=== PATIENT | female | born 1990 | race African-American/Black ===

== ENCOUNTER 2020-07-08 20:40 | Emergency (ER) | payer MEDICAID ==
[~2020-07-08] VITALS: Ht 170.2 cm; Wt 127.0 kg
[2020-07-08 21:00] VITALS: BP 133/86
--- NOTE | 2020-07-08 21:00 | NUR ---
ED Nurse Note: Patient walked into ED for c/o abscess on R vaginal labia. Patient reports severe pain and discomfort in vaginal area. Patient denies any other symptoms. No fever, cough, SOB. Patient is aaox4, breathing is normal and unlabored.
--- NOTE | 2020-07-08 22:00 | NUR ---
ED Nurse Note: Patient is requesting pain medication to be able to tolerate procedure. DEVOND notified and spoke with pt.
[2020-07-08] MEDS ORDERED: Morphine Sulfate 2mg/ml Inj(IV/IM USE ONLY) IM ONE (22:15)
[2020-07-08] MEDS ORDERED: Lidocaine 1% 10mg/ml/EPI 0.01mg/ml 30ml INJ ONE (22:15)
[2020-07-08] MEDS ORDERED: LORazepam Inj 2mg/ml 1ml IM ONE (22:15)
--- NOTE | 2020-07-08 22:26 | Emergency Room Report ---
History of Present Illness General Chief Complaint: Skin Rash/Abscess Source: Patient Present Illness HPI 29-year-old female here with right-sided vaginal pain. Patient says that she has had 1 week of extreme soreness and pain and swelling that she feels on the right side of her vagina. She says it is painful to sit. She noticed it several days ago and that there was a small amount of white drainage from the area but that stopped but the swelling has increased. Has not taken anything for pain. No fevers or chills, no dysuria, no vaginal discharge or vaginal bleeding. Allergies: Coded Allergies: No Known Allergies (Unverified , 07/08/20) COVID-19 Screening Contact w/high risk pt: No Experienced COVID-19 symptoms?: No COVID-19 Testing performed ENGLISH TUTOR: No Patient History Last Menstrual Period: 09/2019 Now: No Nursing Documentation-[facility] Past Medical History: No Stated History Review of Systems All Other Systems: negative except mentioned in HPI Physical Exam Vital Signs Date Time Temp Pulse Resp B/P (MAP) Pulse Ox O2 Delivery O2 Flow Rate FiO2 07/08/20 20:44 97.5 100 16 133/86 (102) 98 Room Air Sp02 EP Interpretation: reviewed, normal General Appearance: no apparent distress, alert, GCS 15, non-toxic Head: normocephalic, atraumatic Eyes: bilateral eye normal inspection, bilateral eye PERRL ENT: hearing grossly normal, normal pharynx, no angioedema, normal voice Neck: full range of motion, supple/symm/no masses Respiratory: chest non-tender, lungs clear, normal breath sounds, speaking full sentences Cardiovascular #1: regular rate, rhythm, no edema Cardiovascular #2: 2+ carotid (R), 2+ carotid (L), 2+ radial (R), 2+ radial (L) , 2+ dorsalis pedis (R), 2+ dorsalis pedis (L) Gastrointestinal: normal bowel sounds, non tender, soft, non-distended, no guarding, no rebound Rectal: deferred Genitourinary: no CVA tenderness, other - Focal area of swelling and erythema of the right labia. Extremely tender on palpation. No surrounding skin erythema Musculoskeletal: back normal, normal range of motion, calf tenderness, gait/ station normal, non-tender Neurologic: alert, motor strength/tone normal, oriented x3, sensory intact, responsive, speech normal Psychiatric: judgement/insight normal, memory normal, mood/affect normal, no suicidal/homicidal ideation Lymphatic: no adenopathy Procedures Incision and Drainage Incision and Drainage : Consent: Verbal Blade Size: 11 I & D Procedure: betadine prep Wound Location: other - Right Bartholin's gland Wound's Depth, Shape: superficial Anesthesia: Lidocaine w/ Epi Patient Tolerated: Well Complications: None Progress Large amount of purulent fluid drained Medical Decision Making Diagnostic Impression: Primary Impression: Bartholin's gland abscess ER Course 29-year-old female here with her right-sided vaginal pain. Patient had a approximately 2 cm Bartholin's abscess which was incised and drained as described above. Patient tolerated the procedure well. A large amount of purulent fluid was drained. I discussed placement of a Word catheter and patient wished to not have this placed. She was given a prescription for doxycycline and told to follow-up with her primary care physician or come back to the emergency department if she has any worsening pain, drainage, erythema, fevers, chills. She expressed understanding was discharged. Ddx: lymphadenopathy/lymphangitis, sebaceous/ganglion cyst, abscess, cellulitis , tumor, insect bite, substance abuse, folliculitis Last Vital Signs Date Time Temp Pulse Resp B/P (MAP) Pulse Ox O2 Delivery O2 Flow Rate FiO2 07/08/20 20:44 97.5 100 16 133/86 (102) 98 Room Air Scripts Doxycycline Monohydrate* (DOXYCYCLINE MONOHYDRATE*) 100 Mg Capsule 100 MG ORAL Q12H, #14 CAP 0 Refills Prov: Basilio Diaz M.D. 07/08/20 Basilio Diaz M.D. Jul 08, 2020 22:26
--- NOTE | 2020-07-08 23:00 | NUR ---
ED Nurse Note: ERMD bedside for I&D procedure. Female RN witness present for procedure. Pt tolerated well.
--- NOTE | 2020-07-08 23:30 | NUR ---
ED Nurse Note: Patient reports relief of most pain and discomfort associated with abscess s/p I&D.
[2020-07-08] MEDS ORDERED: DOXYCYCLINE MO100 MG ORAL (23:55)
[2020-07-09] VITALS: BP 121/99
--- NOTE | 2020-07-09 | NUR ---
ER DISCHARGE NOTE: Patient is cleared to be discharged per ERMD, pt is aox4, on room air, with stable vital signs. pt was given dc and prescription instructions, pt was able to verbalize understanding, pt id band removed. pt is able to ambulate with steady gait. pt took all belongings.
== END 2020-07-09 | disposition home or self-care (01) ==
LOC: EMR 21:00
DX: N75.1 Abscess of Bartholin's gland (principal)
CPT/HCPCS: 10060; 96372; J2270; Z7502; 99283

== ENCOUNTER 2020-08-15 09:40 | Emergency (ER) | payer MEDICAID ==
[~2020-08-15] VITALS: Ht 170.2 cm; Wt 125.2 kg
[~2020-08-15 09:40] MED LIST: DOXYCYCLINE MO100 MG ORAL
[2020-08-15 09:52] VITALS: BP 103/75
--- NOTE | 2020-08-15 10:10 | Emergency Room Report ---
History of Present Illness General Chief Complaint: Lower Extremity Injury Source: Patient Present Illness HPI Is a 29-year-old female presents after increased left-sided ankle pain. Patient awoke from sleep with pain. Denies any fever. States she recently finished her menses. Denies any other locations of discomfort. Patient took ibuprofen without any improvement. Denies any definite recent trauma. 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 Patient History Past Medical History: see triage record Last Menstrual Period: currently on her period Reviewed Nursing Documentation: PMH: Agreed; PSxH: Agreed Nursing Documentation-PMH Past Medical History: No Stated History Review of Systems All Other Systems: negative except mentioned in HPI Physical Exam Vital Signs Date Time Temp Pulse Resp B/P (MAP) Pulse Ox O2 Delivery O2 Flow Rate FiO2 08/15/20 09:52 97.3 92 15 103/75 (84) 96 Room Air General Appearance: well appearing, no apparent distress, alert, GCS 15 Head: normocephalic, atraumatic ENT: hearing grossly normal, normal voice Neck: full range of motion, supple Respiratory: chest non-tender, lungs clear, no respiratory distress, speaking full sentences Gastrointestinal: normal inspection Musculoskeletal: other - Left-sided ankle tenderness to the anterior for talofibular area, minimal soft tissue swelling, no erythema Neurologic: alert, motor strength/tone normal, tool supervisor III-XII nml as tested, oriented x3, normal gait Psychiatric: mood/affect normal Skin: no rash Medical Decision Making Diagnostic Impression: Primary Impression: Ankle pain ER Course Patient presented for ankle pain. Differential diagnosis include was not limited to ankle sprain, contusion, fracture among others. Because of compl exity of patient's case imaging studies were ordered. Extremity with ankle 3 views interpreted by me showed normal bony alignment without an fracture. Patient was placed in [place] wrap. She was given crutches. She was advised to take nonsteroidal anti-inflammatory medications to keep her leg elevated. Patient was advised to return if she shows some erythema or other signs of inf ection. The patient is advised to follow up with primary care doctor in 2-3 days. Patient is advised to return if any worsening condition or if any changes in status that are concerning. This report is dictated with Dragon plate painter apprentice software which may occasionally lead to discrepancies related to use of this software. Last Vital Signs Date Time Temp Pulse Resp B/P (MAP) Pulse Ox O2 Delivery O2 Flow Rate FiO2 08/15/20 09:52 97.3 92 15 103/75 (84) 96 Room Air Status: improved Disposition: HOME, SELF-CARE Condition: Stable Scripts Ibuprofen* (MOTRIN*) 600 Mg Tablet 600 MG ORAL Q8H PRN for FOR PAIN, #30 TAB 0 Refills Prov: Deejay Finney MD 08/15/20 Deejay Finney MD Aug 15, 2020 10:10
[2020-08-15] MEDS ORDERED: IBUPROFEN600 M1 ORAL (10:39)
--- NOTE | 2020-08-15 16:11 | Diagnostic Imaging Report ---
Indication: Left ankle pain Technique: 3 views of the left ankle Comparison: none Findings: No acute fractures. No dislocations. The joint spaces are preserved. Impression: Negative
== END 2020-08-15 10:52 | disposition home or self-care (01) ==
LOC: EMR 10:05
DX: M25.572 Pain in left ankle and joints of left foot (principal)
CPT/HCPCS: 73610; Z7502; 99283

== ENCOUNTER 2020-08-17 18:28 | Emergency (ER) | payer MEDICAID ==
[~2020-08-17] VITALS: Ht 170.2 cm; Wt 126.1 kg
[~2020-08-17 18:28] MED LIST changes: +IBUPROFEN600 M1 ORAL
[2020-08-17] MEDS ORDERED: Ketorolac 30mg Inj IM ONE (19:00)
[2020-08-17] MEDS ORDERED: Methocarbamol 750mg tab ORAL ONE (19:00)
[2020-08-17 19:10] VITALS: BP 109/71
--- NOTE | 2020-08-17 19:16 | NUR ---
ED Nurse Note:pt. walked in c/o left foot pain for 2 days, given pain meds
--- NOTE | 2020-08-17 19:50 | NUR ---
ED Nurse Note: Recieved report from TILA Lewis to resume care, pt is sitting in chair waiting for discharge, pt is here with c/o left foot pain, pt stats she still has pain and is not satisfied with care given, pt feels as of more should be done rose blood work, immediately informed, , whom came and eplained ER processes to pt and also re-assessed pt and car given, pt now leaving, ambulating with steady gait, pt refused ortho shoe and walking holding crutches in hand, pt given d/c instructins and explained in detail importance for f/u with ortho. nad noted during pt d/c to home.
[2020-08-17 20:00] VITALS: BP 119/72
[2020-08-17] MEDS ORDERED: ROBAXIN-500MG ORAL (20:00)
--- NOTE | 2020-08-17 20:00 | Emergency Room Report ---
History of Present Illness General Chief Complaint: Pain Source: Patient (Tiffany Montoya) Present Illness HPI 29-year-old female with no known significant past medical history was here ER 2 days ago left ankle pain here complaining of worsening pain now the pain migrating to the left foot. Patient had an ankle x-ray done 2 days ago which was within normal limits. Patient was provided with crutches and ibuprofen. Patient returns today and said that the ankle pain has gone away she is feeling pain and swelling left foot. Patient denies any fall or injury. Denies any chest pain shortness of breath. Denies any headache. Patient is jennifer rovascularly intact. Denies any tingling or numbness. Patient is obese. Take ibuprofen for pain. Denies and reports that she is currently on her menstruation. Ambulating with crutches (Tiffany Montoya) Allergies: Coded Allergies: No Known Allergies (Unverified , 07/08/20) COVID-19 Screening Contact w/high risk pt: No Experienced COVID-19 symptoms?: No COVID-19 Testing performed BIG DATA LEAD: No (Tiffany Montoya) Patient History Past Medical History: see triage record Past Surgical History: none Pertinent Family History: none Last Menstrual Period: 07/15/20 Now: No Immunizations: UTD Reviewed Nursing Documentation: PMH: Agreed; PSxH: Agreed (Tiffany Montoya) Nursing Documentation-PMH Past Medical History: No Stated History (Tiffany Montoya) Review of Systems All Other Systems: negative except mentioned in HPI (Tiffany Montoya) Physical Exam Vital Signs Date Time Temp Pulse Resp B/P (MAP) Pulse Ox O2 Delivery O2 Flow Rate FiO2 08/17/20 18:32 97.9 109 16 109/71 (84) 99 Room Air Sp02 EP Interpretation: reviewed, normal General Appearance: well appearing, alert Head: normocephalic, atraumatic Eyes: bilateral eye normal inspection, bilateral eye PERRL ENT: hearing grossly normal, normal pharynx, no angioedema, normal voice Neck: full range of motion, supple/symm/no masses Respiratory: no respiratory distress, no retraction, speaking full sentences Cardiovascular #1: regular rate, rhythm, no edema, no murmur Gastrointestinal: normal inspection Musculoskeletal: back normal, no calf tenderness, pelvis stable, non-tender, swelling - Left foot dorsum Neurologic: alert, motor strength/tone normal, oriented x3, sensory intact, responsive, speech normal Psychiatric: judgement/insight normal, memory normal, mood/affect normal, no suicidal/homicidal ideation Lymphatic: normal inspection (Tiffany Montoya) Medical Decision Making PA Attestation All diagnoses and treatment plans were reviewed and discussed with my supervising physician Dr. Coronel (Tiffany Montoya) PA Attestation I participate in the care of this patient along with HUAN Victor Briefly, this a 29-year-old female seen in the emergency department 2 days ago complaining of ankle pain with negative x-rays. Reporting pain is now migrated to the base of the fourth digit on the left foot. Denies reinjury. Reports swelling. Ankle pain has now resolved. She has been taking ibuprofen and using the crutches that were provided to her on last ED visit. X-rays were obtained which did not show any acute fracture, dislocation or other bony pathology in the foot. Patient expressed dissatisfaction with her treatment in the ED and I was called over to speak with her. My examination is there is no significant swelling there is mild tenderness at the base of the fourth digit at the MTPJ. Range of motion remains intact. She is requesting advanced imaging such as MRI and a definitive answer for her ankle and foot pain. She states that she was promised blood work and advanced imaging on her last emergency department visit. After reviewing the x-rays there is no obvious finding of cause of the patient's pain, no evidence of gout, most likely this is a ligamentous strain, sprain or overuse injury. I counseled the patient that she is stable for outpatient follow-up and referred her to orthopedic services in the area. She expressed some dissatisfaction with his answer but ultimately accepted and left the emergency department. She was provided with postop boot but left it in the ED on departure. (Matt Coronel MD) Diagnostic Impression: Primary Impression: Edema of foot Additional Impression: Foot pain ER Course 29-year-old female with no known significant past medical history was here ER 2 days ago left ankle pain here complaining of worsening pain now the pain migrating to the left foot. Patient had an ankle x-ray done 2 days ago which was within normal limits. Patient was provided with crutches and ibuprofen. Patient returns today and said that the ankle pain has gone away she is feeling pain and swelling left foot. Patient denies any fall or injury. Denies any chest pain shortness of breath. Denies any headache. Patient is neurovascularly intact. Denies any tingling or numbness. Patient is obese. Take ibuprofen for pain. Denies and reports that she is currently on her menstruation. Ambulating with crutches Ddx considered but are not limited to: foot fracture, foot sprain, foot contusion, foot strain Vital signs: are WNL, pt. is afebrile H&PE are most consistent with: Edema foot, foot pain ORDERS: foot Xray, Robaxin, foot x-ray ED INTERVENTIONS: Offered postop shoe patient refused DISCHARGE: At this time pt. is stable for d/c to home. Will provide printed patient care instructions, and any necessary prescriptions. Care plan and follow up instructions have been discussed with the patient prior to discharge. Patient keeps asking if we need to "figure out what is going on as if there is an infection prevention". I informed the patient there was no infection noted in the bone based on the x-ray no fluid noted on x-ray and no bone fracture noted. Patient kept saying that she did not come here to get a boot and pain medication she just wants to know what is going on with her foot. Patient is r equesting more imaging such as CT scan or MRI. Patient does not allow me to finish my sentences. Patient Stated that she is not happy with the medical treatment she is getting here. Refuses to wear the postoperative shoe. I asked my supervising physician to talk to the patient and he recommended the patient continue taking Motrin keep icing the foot and follow-up with air pollution specialist. I also provided patient with contact information to orthopedic urgent care. Patient is to continue to refuse postoperative shoe and I explained to her that even though there is no fracture that she can help with her symptoms., Patient refused postop shoe and was discharged with additional Robaxin and asked to continue taking Motrin 600 mg 3 times a day. Patient already had crutches were provided to her 2 days ago during her other visits to [facility]. (Tiffany Montoya) Other X-Ray Diagnostic Results Other X-Ray Diagnostic Results : X-Ray ordered: Left foot # of Views/Limited Vs Complete: 3 View Indication: Pain EP Interpretation: Yes PA Xray: Interpretation reviewed, by supervising MD, and agrees with findings. Interpretation: no dislocation, no soft tissue swelling, no fractures Impression: No acute disease Electronically Signed by: Tiffany Park PA-C (Tiffany Montoya) Last Vital Signs Date Time Temp Pulse Resp B/P (MAP) Pulse Ox O2 Delivery O2 Flow Rate FiO2 08/17/20 19:10 97.9 16 109/71 99 Room Air 08/17/20 18:32 109 (Tiffany Montoya) Disposition: HOME, SELF-CARE Condition: Stable Scripts Methocarbamol* (ROBAXIN-500*) 500 Mg Tablet 500 MG ORAL TID PRN for For Pain, #15 TAB 0 Refills Prov: Tiffany Montoya 08/17/20 Referrals: [facility],REFERRING (PCP) Patient Instructions: Edema, [id number] Additional Instructions: Take medication as directed, continue taking ibuprofen, follow-up with your primary doctor, also follow-up with air pollution specialist, if worsening symptoms return to the emergency Tiffany Montoya Aug 17, 2020 20:00 Matt Coronel MD Aug 17, 2020 21:30
[2020-08-17 20:05] VITALS: BP 109/71
--- NOTE | 2020-08-18 15:52 | Diagnostic Imaging Report ---
Indication: Left foot pain Technique: 3 views foot Comparison: none Findings: No acute fractures. No dislocation. The joint spaces are preserved. Impression: Negative
== END 2020-08-17 20:05 | disposition home or self-care (01) ==
LOC: EMR 19:00
DX: R60.9 Edema, unspecified (principal); M79.672 Pain in left foot
CPT/HCPCS: 73630; 96372; J1885; Z7502; 99283